=== PATIENT | female | born 1980 | race Two or more races ===

== ENCOUNTER 2023-07-02 11:09 | Outpatient (AMB) | payer OTHER, SELFPAY ==
--- NOTE | 2023-07-02 11:34 | HO.SPINEOV ---
Intake Intake Visit Reasons: Low back pain. Intake Note: Ms. Galan is in today c/o low back pain. MRI [facility]/disk Here [employer] Tech Required: No Assessment & Plan Assessment & Plan (1) Spondylolisthesis, lumbar region: Code(s): M43.16 - Spondylolisthesis, lumbar region Plan Dear Dr Johansen, Thank you for referring Mrs Galan to our office today. She is a very nice 42-year-old female presents for evaluation of chronic low back pain and spine pain with bilateral leg pain left greater than right. The symptoms all started sometime around 2016 when she sustained a fall on stairs. She thought she fractured her tailbone. She went through a series of conservative treatments including tincture of time, watchful waiting, [id number] pain medications, therapy etc. but nothing seemed to work. She ultimately underwent an MRI showing a spondylolisthesis and spondylolysis at L5 with bilateral neuroforaminal narrowing. At the time she was around 400 lb, and she saw Dr. Oviedo at [facility] who told her that she just needed to lose some weight and things would go away. She did ultimately undergo gastric sleeve surgery and lost 130 lb but unfortunately it did not help. She is left with constant daily pain in her back which will run up her spine. It also goes down her legs bilaterally into her calves left greater than right. The pain is present all throughout the day and can also be present at nighttime. She is very frustrated because she has been unable to work and unable to do many of the activities that she finds meaningful to life. The symptoms can be present when she is standing but also she sits for too long of a time. PMH: She had a gastric sleeve, carpal tunnel release, asthma . Denies any heart attacks, strokes, kidney disorders, bleeding disorders. She did have some kind of benign arrhythmia which was followed by a hand striper and she has been told that it is no longer an issue. She just recently saw his hand striper in the last few months for her yearly checkup. Social hx: She has not smoke, occasional alcohol, no marijuana Medications: Omeprazole Allergies: Amiodarone, penicillin and Lyrica Physical exam: Morbidly obese no acute distress, she has full strength of bilateral lower extremities with the exception of some mild left tibialis weakness. Reflexes absent bilaterally. She has abdominal exam showing multiple port access laparoscopic sites which are well healed as well as a scar on the midline lower abdomen. It is well healed. Imaging review: Lumbar MRI done at [facility] shows a grade 1-2 spondylolisthesis with spondylolysis and bilateral neural foraminal narrowing. There is some mild degenerative disc disease at L4-5. Impression: 42-year-old female presents with chronic back pain and bilateral lower extremity pain with lumbar radiculopathy down into the calves, very likely due to the spondylolysis and spondylolisthesis at L5-S1 causing neuroforaminal compression. She has been through all the typical conservative treatments including therapy, medication trials, cortisone injections etc.. At this point her daily life is filled with chronic pain, sitting or standing can also be uncomfortable but walking around his particularly bothersome. She gets about 2-3 hours of sleep at night. She is looking for more of a definitive surgical solution. We discussed the fact that typically Dr. Flor would approach this through an anterior lumbar interbody fusion. We will need to review her imaging with to see if this approach would be feasible given her history of previous surgeries and the angle of the L5-S1 disc orientation. I will also review the imaging with Dr. Flor to see if he has any other thoughts. Once I have a chance to review this with the 2 surgeons I will contact the patient with an updated plan. We did go over in detail the surgery as well as risks benefits and recovery. Thank you for allowing us to care for your patient. The total time spent with this visit with this patient was 45 minutes reviewing history, physical exam, lumbar imaging review, and implementation of treatment plan or further diagnostic testing Joshua Flor MD,PhD [facility] Coding Level of Care Code New Pt Level 4 (67176) Diagnoses Spondylolisthesis, lumbar region M43.16
== END 2023-07-02 12:14 | disposition home or self-care (01) ==
PROVIDERS: PCP Physician Assistant Medical; Referring Provider Physical Medicine & Rehabilitation; Visit Provider Physician Assistant
DX: M43.16 Spondylolisthesis, lumbar region (principal)
CPT/HCPCS: 99204

== ENCOUNTER → 2023-07-02 11:09 | Outpatient (BNVA) | payer OTHER, MEDICAID, SELFPAY | PROVIDERS: PCP Physician Assistant Medical; Visit Provider Physician Assistant | DX: M43.16 Spondylolisthesis, lumbar region (principal) | CPT/HCPCS: 99202 ==

== ENCOUNTER 2023-11-19 11:04 | Outpatient (AMB) | payer MEDICARE, MEDICAID, SELFPAY ==
--- NOTE | 2023-11-19 11:38 | A.SPINEOV_ITS ---
Intake Visit Reasons: Discuss L5-S1 TKLIF Intake Note: Ms. Galan is here today to discuss surgical options. Data Specialist Required: No Assessment & Plan Assessment & Plan (1) Spondylolisthesis, lumbar region: Code(s): M43.16 - Spondylolisthesis, lumbar region Category: Medical Plan Dear colleague, 11/19/2023 I saw for surgical discussion Nury Galan. She was previously seen by Joshua Nelson BA and he wanted me to discuss possible surgery with the patient. She would need some form of L5-S1 fusion but her anatomy does not allow an anterior approach or a easy access posterior approach. Therefore I propose to do a oblique lateral lumbar interbody fusion. The disadvantages that there is risk of nerve irritation that can last for about 6 weeks or even nerve injury. Therefore I told the patient that she should only consider lumbar fusion surgery if her back pain is to disabling to continue her current life situation. The patient decided to withhold on surgery has a quality of life is still reasonable. She will return to my office if she consider surgery. Noam Flor MD, PhD [facility] Trained Neurosurgeon Director, [facility] Coding Level of Care Code Est Pt Level 2 (35276) Diagnoses Spondylolisthesis, lumbar region M43.16
== END 2023-11-19 12:07 | disposition home or self-care (01) ==
PROVIDERS: PCP Physician Assistant Medical; Visit Provider Neurological Surgery
DX: M43.16 Spondylolisthesis, lumbar region (principal)
CPT/HCPCS: 99212

== ENCOUNTER → 2023-11-19 11:04 | Outpatient (BNVA) | payer MEDICARE, MEDICAID, SELFPAY | PROVIDERS: PCP Physician Assistant Medical; Visit Provider Neurological Surgery | DX: M43.16 Spondylolisthesis, lumbar region (principal) | CPT/HCPCS: 99212 ==